=== PATIENT | female | born 1975 | race Caucasian/White ===

== ENCOUNTER 2017-02-05 13:37 | Emergency (ER) | payer SELFPAY ==
[2017-02-05 14:10] VITALS: RESP 16; TEMP 96.8
--- NOTE | 2017-02-05 14:38 | PDOC ---
Foot / Ankle Injury - General Chief Complaint: Lower Extremity Problem/Injury Stated Complaint: toe pain Date Seen by Provider: 02/05/17 Time Seen by Provider: 13:43 Source: POSITIVE: Patient Exam Limitations: POSITIVE: No limitations Nurse's Notes Reviewed & Considered: Yes - History of Present Illness Initial Comments: The patient is a 42 year old female. She states that approximately 3 weeks ago she struck her barefoot on a child's plastic slide. She states she has had pain to the left third fourth and fifth toes since. She states that initially her fifth toe was deviated laterally and that she "pulled it straight". Later her grandchild stepped on her left toes, which seemed to exacerbate her discomfort. Patient also states that for the past several days she's had a mild cough and some nasal congestion. No fevers or chills. Cough is nonproductive. Patient states that she had some sore throat at onset of her URI symptoms, which has since resolved. No sensory or motor symptoms. Have you received a tetanus shot in the past 10 years?: Yes Location: Left Foot Timing: REPORTS: Abrupt Duration: >1 week (3 weeks ago, approximately) Severity: Moderate Quality: REPORTS: "Pain" Context: REPORTS: Direct Blow, Stub, Barefoot Modifying Factors: REPORTS: Other (some discomfort on direct palpation and weight bearing) Associated Symptoms: DENIES: Tingling Distally, Numbness Distally, Swelling, Snapping Sensation, Popping Sensation, Other Any Prior Injuries Related to Current Complaint?: No - Patient Allergies Allergies/Adverse Reactions: Allergies Allergy/AdvReac Type Severity Reaction Status Date / Time No Known Allergies Allergy Verified 02/05/17 13:49 - Patient Home Medications Home Medications: Home Medications Ibuprofen [Advil Liqui-Gels] 200 mg PO Q6H PRN 02/05/17 Past Medical History - heen HEENT History: Denies History Cardiovascular History: Other (please comment) Additional Cardiovasular History: CHILDHOOD MURMUR Respiratory History: Other (please comment) Additional Respiratory History: ACUTE BRONCHITIS Gastrointestinal History: GERD, Hepatitis, Other (please comment) Additional Gastrointestinal History: ACID REFLUX, HX OF HEP C WITH TX OF INTERFERON IN 1997 FOR 18 MONTHS Genitourinary History: Denies History Endocrine History: Denies History Musculoskeletal History: Back Pain, Other (please comment) Prosthesis or Implant: No Additional Musculoskeletal History: LEFT KNEE SCOPE, PT STATES CYST REMOVAL, rt knee meniscus repair, rt hand carpal tunnel Neurological History: Denies History Blood Disorders: Denies History Psychiatric History: Depression, Anxiety Disorders History of Sexually Transmitted Diseases: No Female Reproductive History: Hysterectomy Cancer History: Denies History In Past Year Been Physically Harmed or Verbally Threatened: No History of MDRO: No History of Other Communicable Diseases: No Tobacco Use: Never Smoker Alcohol Use: None Substance Use Type: None Previous Surgical History: Yes Type / Date of Surgery: C SECTION/ TRENA/ PAUL-BSO/ RIGHT KNEE SCOPE/ TONSILLECTOMY/ BILAT TUBAL/ CTR/LEFT KNEE SCOPE Anesthesia Reactions: No Malignant Hyperthermia: No Significant Family History: Diabetes Past Medical History Reviewed: Reviewed - No Changes ROS - Limitations ROS Limitations: No Limitations Constitution: REPORTS: Denies Symptoms Cardiovascular: REPORTS: Denies Cardiac Symptoms Respiratory: REPORTS: Cough Non Productive (Mild). DENIES: Hurts To Breathe, Shortness Of Breath, Wheezing Neurological: REPORTS: Denies Neuro Symptoms Gastrointestinal: REPORTS: Denies GI Symptoms Endocrine: REPORTS: Denies Symptoms Musculoskeletal: REPORTS: Denies MS Symptoms Genitourinary: REPORTS: Denies Symptoms Eyes: REPORTS: Denies Symptoms ENT: REPORTS: Congestion Skin: REPORTS: Denies Skin Symptoms Lympathic: REPORTS: Denies Lympathic Symptoms Immunologic: POSITIVE: Denies Symptoms Psychiatric: POSITIVE: Denies Psych Symptoms Foot / Ankle Exam - General Appearance General Appearance: POSITIVE: Alert, Cooperative, No Acute Distress. NEGATIVE: No Evidence of Trauma (mild ecchymosis at base of left third and fourth and fifth toes) - Extremities Foot: POSITIVE: Soft Tissue Tenderness, Bony Tenderness, Ecchymosis (mild, base of left third fourth and fifth toes). NEGATIVE: Limited ROM d/t Pain, Carrera. ROM d/t Decr. Funct., Deformity, Nail Injury, Complete Avulsion, Partial Avulsion, Subungual Hematoma Ankle: POSITIVE: Normal Inspection, Non-Tender, Normal ROM, Stable Gait: POSITIVE: Normal Neuro: POSITIVE: Sensation Normal, Motor Normal Vascular: POSITIVE: No Vascular Compromise, Full Pulses, Equal Pulses Tendons: POSITIVE: Tendon Function Normal Skin: POSITIVE: Warm, Dry - HEENT HEENT: POSITIVE: Head Inspection Nml, Eyes Inspection Nml, Ears Inspection Nml, Nose Inspection Nml, Oral/Dental Inspect. Nml, Pharynx Inspect. Nml, PERRL, EOMI - Neck / Back Neck / Back: Normal Inspection - Respiratory / CVS Respiratory / CVS: POSITIVE: Chest Non-Tender, No Respiratory Distress, Heart Sounds Normal, Regular Rate/Rhythm, Breath Sounds Normal Peripheral Pulses: Radial (R): 2+, Radial (L): 2+, Dorsalis-pedis (R): 2+, Dorsalis-pedis (L): 2+ Images - Lower Extremities Feet: 1 - Area of discomfort; mild ecchymosis. Foot / Ankle Progress - Results Reviewed by me Pain Medication Addressed: POSITIVE: Yes (recommended Tylenol) School/Work Release Addressed: POSITIVE: Not Applicable Xrays/CTs/US Reviewed by me: Yes Discussed with Radiologist: No Radiology Results: POSITIVE: Left, Foot Radiology Findings: No fractures or dislocations seen by my interpretation; radiologist interpretation pending. - Patient's Progress Re-Examine Time:: 14:25 Status: POSITIVE: Unchanged, Re-Examined - Consult Counseled: POSITIVE: Patient, RE: Radiology Results, RE: DX, RE: Need for F/U Patient Care Time - Estimated PCT Patient Care Time (In Minutes): 22 Vital Signs - Recent Vital Signs Vital Signs: Vital Signs (Last 8 hours) Temp Pulse Resp BP Pulse Ox 02/05/17 13:56 96.8 F 82 16 130/89 92 - VS Reviewed Vital Signs Reviewed: Yes Discharge Clinical Impression: Contusion, URI (upper respiratory infection) Discharge Disposition: Discharged to Home Condition: Good Patient Instructions Given at Discharge: Upper Respiratory Infection (ED), Contusion in Adults (ED) Additional Instructions: X-ray of your left foot shows no fractures or dislocations. You do have a bruise (contusion) to your left foot, but I believe you're going to be fine. Weightbearing as tolerated. Cool compresses may also help. Advil or Tylenol for discomfort. Your chest is clear and I see no evidence of pneumonia or any other serious problems. You probably do have an upper respiratory viral infection. Increase fluids. Follow-up with your primary care provider. Return here as necessary. Follow Up With: REBECCA ALLEN [Primary Care Provider] - (Instructions as above. Follow-up with your primary care provider. Return here as necessary.)
--- NOTE | 2017-02-07 08:50 | DI ---
XR FOOT COMPLETE MIN 3VW,02/05/2017 1:52 PM: Clinical History: Shortness of breath, hypoxia and elevated d-dimer. Previous Exam: None at this facility. Findings: Multiple helically acquired CT images are obtained through the chest following the intravenous admini stration of 65 cc of Isovue 300, and demonstrate diffuse COPD. The pulmonary arteries are normal with out filling defect or truncation to suggest pulmonary embolism. The aorta is unremarkable. The upper abdomen is also unremarkable. Diffuse degenerative changes of the spine are seen. The thyroid is normal. Impression: 1. No evidence of pulmonary embolism. 2. Mild diffuse emphysema.
== END 2017-02-05 14:50 | disposition home or self-care (01) ==
LOC: ER 13:37
DX: S90.122A Contusion of left lesser toe(s) without damage to nail, initial encounter (principal); J06.9 Acute upper respiratory infection, unspecified; R05 Cough; W22.8XXA Striking against or struck by other objects, initial encounter
CPT/HCPCS: 73630; 99282

== ENCOUNTER 2017-02-22 10:04 | Emergency (ER) | payer SELFPAY ==
--- NOTE | 2017-02-22 10:21 | PDOC ---
Upper Respiratory HPI - General Chief Complaint: Cough / URI Stated Complaint: CONT URI SYMPTOMS Date Seen by Provider: 02/22/17 Time Seen by Provider: 10:21 - History of Present Illness Initial Comments: Patient is in about a month or 2 of waxing and waning cough with some sputum production sometimes greenish tint to mucus. She is feeling a little bit poorly from this and had a posttussive emesis today which prompted her to come to the emergency department. She's had no hemoptysis. She denies any fever or chills. She occasionally has a little bit shortness of breath associated with the cough but not really any shortness of breath and Effexor daily living or causes her to become winded. - Patient Home Medications Home Medications: Home Medications Ibuprofen [Advil Liqui-Gels] 200 mg PO Q6H PRN 02/05/17 Azithromycin [Zithromax Tri-Clarence] 500 mg PO DAILY #1 packet 02/22/17 Codeine/Promethazine HCl [Promethazine-Codeine Syrup] 10 ml PO Q6H PRN PRN #240 syrup 02/22/17 Gabapentin 300 mg PO BEDTIME 02/22/17 - Patient Allergies Allergies/Adverse Reactions: Allergies Allergy/AdvReac Type Severity Reaction Status Date / Time No Known Allergies Allergy Verified 02/22/17 10:08 Past Medical History - heen HEENT History: Denies History Cardiovascular History: Other (please comment) Additional Cardiovasular History: CHILDHOOD MURMUR Respiratory History: Other (please comment) Additional Respiratory History: ACUTE BRONCHITIS Gastrointestinal History: GERD, Hepatitis, Other (please comment) Additional Gastrointestinal History: ACID REFLUX, HX OF HEP C WITH TX OF INTERFERON IN 1997 FOR 18 MONTHS Genitourinary History: Denies History Endocrine History: Denies History Musculoskeletal History: Back Pain, Other (please comment) Prosthesis or Implant: No Additional Musculoskeletal History: LEFT KNEE SCOPE, PT STATES CYST REMOVAL, rt knee meniscus repair, rt hand carpal tunnel Neurological History: Denies History Blood Disorders: Denies History Psychiatric History: Depression, Anxiety Disorders History of Sexually Transmitted Diseases: No Cancer History: Denies History History of MDRO: No History of Other Communicable Diseases: No Alcohol Use: None Substance Use Type: None Previous Surgical History: Yes Type / Date of Surgery: C SECTION/ TRENA/ PAUL-BSO/ RIGHT KNEE SCOPE/ TONSILLECTOMY/ BILAT TUBAL/ CTR/LEFT KNEE SCOPE Anesthesia Reactions: No Malignant Hyperthermia: No Significant Family History: Diabetes Past Medical History Reviewed: Reviewed - No Changes ROS - Limitations ROS Limitations: No Limitations Constitution: REPORTS: Denies Symptoms Cardiovascular: REPORTS: Denies Cardiac Symptoms Respiratory: REPORTS: Denies Resp Symptoms Upper Respiratory/Fever Exam - General Appearance General Appearance: REPORTS: Alert, Cooperative, No Acute Distress - HEENT HEENT: POSITIVE: Head Inspection Nml, Eyes Inspection Nml, Ears Inspection Nml, Nose Inspection Nml - Respiratory Respiratory: REPORTS: No Respiratory Distress, Breath Sounds Normal - Abdomen Abdomen: Soft: (All Quadrants), Normal Bowel Sounds: (All Quadrants), Denies Tenderness: (All Quadrants) Upper Resp/Fever Progress - Patient's Progress MDM / ED Course: Her vitals and her exam and suggests she doesn't have any acute pneumonia or any more severe sort of illness. She has had a pretty significant long course of cough consistent with a bronchitis. She did have posttussive emesis today. I think we'll go ahead and try a Zithromax Z-Clarence and give her some cough medicine if this does not work she is given the chest x-ray and further workup including possible workup for asthma. Patient Care Time - Estimated PCT Patient Care Time (In Minutes): 15 Vital Signs - VS Reviewed Vital Signs Reviewed: Yes Discharge Clinical Impression: Acute bronchitis Qualifiers: Bronchitis organism: unspecified organism Qualifier Code: (J20.9) Acute bronchitis, unspecified Discharge Disposition: Discharged to Home Condition: Fair Prescriptions / Orders: Codeine/Promethazine HCl [Promethazine-Codeine Syrup] 10 ml PO Q6H PRN PRN #240 syrup PRN Reason: Cough Azithromycin [Zithromax Tri-Clarence] 500 mg PO DAILY #1 packet Patient Instructions Given at Discharge: Acute Bronchitis (ED) Additional Instructions: Take your medications as prescribed Follow-up with her primary care provider in the next day or 2 for reevaluation Use [id number] cold remedies as needed Follow Up With: REBECCA ALLEN [Primary Care Provider] -
[2017-02-22 10:22] VITALS: RESP 16; TEMP 97.6
== END 2017-02-22 11:00 | disposition home or self-care (01) ==
LOC: ER 10:04
DX: J20.9 Acute bronchitis, unspecified (principal); R06.02 Shortness of breath
CPT/HCPCS: 99282